=== PATIENT | male | born 2000 | race Caucasian/White ===

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

== ENCOUNTER 2022-01-06 17:54 | Emergency (ER) | payer SELFPAY ==
[2022-01-06 17:55] VITALS: BP 134/91; PULSE 102; RESP 15; TEMP 36.6; O2SAT 99; BMI 25.1
--- NOTE | 2022-01-06 18:04 | ED.RN ---
MARIE ON HER WAY IN.
--- NOTE | 2022-01-06 18:22 | RAD_ITS ---
STUDY: X-RAY - LEFT HAND REASON FOR EXAM: Male, 21 years old. Injury/Pain TECHNIQUE: 3 view(s) of the hand. COMPARISON: None. FINDINGS: Normal radiocarpal articulation. Normal distal radioulnar joint. Normal visualized carpal bones. Normal carpal articulations Normal carpometacarpal articulation of the thumb. Normal second through fifth carpometacarpal joints. Normal metacarpi. Normal metacarpophalangeal joint of the thumb. Normal interphalangeal joint of the thumb. Normal proximal and distal phalanges of the thumb. Normal metacarpophalangeal joints of the second through fifth fingers. Normal proximal and distal interphalangeal joints of the second through fifth fingers. Normal phalanges of the second through fifth fingers. The soft tissue structures are unremarkable. RAD/Hand Min 3 Views IMPRESSION: Normal x-ray examination of the hand. Electronically Signed: Lei Benítez MD at 18:45 EDT ,
--- NOTE | 2022-01-06 18:31 | ED.RN ---
PT STATES HE DOES NOT WANT TO FILE THIS UNDER WORKERS COMP. REGISTRATION AND DRUG SCREENER MADE AWARE.
--- NOTE | 2022-01-06 18:34 | EDS_ITS ---
HPI <TOO Hernandez - Last Filed: 01/06/22 18:49> History of Present Illness Chief Complaint: Upper Extremity Injury Narrative Narrative: Today at work patient states his left hand got crushed between 2 metal tables. He has pain and bruising over the dorsum of the hand. He is right-hand dominant. PFSH <TOO Hernandez Last Filed: 01/06/22 18:49> PFSH Medical History Contusion of thoracic wall Lumbar contusion Lumbar strain Thoracic myofascial strain Home Medications NK 01/11/21 [History Last Taken Unknown] Allergy/AdvReac Type Severity Reaction Status Date / Time No Known Allergies Allergy Verified 01/06/22 17:57 Social History Smoking Status: Never smoker ROS <TOO Hernandez - Last Filed: 01/06/22 18:49> ROS ED ROS Narrative Constitutional: Negative for fever, chills, malaise. Eyes: Negative for visual change. ENT: Negative for sore throat, rhinorrhea. CVS: Negative for palpitations, chest pain, syncope. Respiratory: Negative for shortness of breath, cough. GI: Negative for abdominal pain, nausea, vomiting. : Negative for dysuria, hematuria or frequency. Neuro: Negative for headache, motor/sensory dysfunction. Skin: Negative for rash, abscess, or wound. Musc: Positive for left hand pain, swelling, trauma. Heme: Negative for easy bruising, bleeding, lymphadenopathy. EXAM <TOO Hernandez Last Filed: 01/06/22 18:49> Physical Exam Narrative Exam Narrative: CONST: Patient sitting in no acute distress. EYES: Normal inspection. NECK: Normal inspection. RESP: No respiratory distress, CTAB. CVS: Regular rate and rhythm, no murmur, no gallop. SKIN: Color normal, no rash, warm, dry, intact. EXTREMITIES: Ecchymosis and tenderness over dorsal and palmar left second and third metatarsals, no deformity or crepitus, no tenderness of the wrist or MCPs or digits. Motor and sensation intact in median ulnar and radial distributions, 2+ radial pulse and brisk cap refill in all digits. NEURO: Oriented x4. PSYCH: Normal affect. Const Vital Signs: 01/06/22 17:55 Temperature 98 F Temperature Source Temporal Pulse Rate 102 H Respiratory Rate 15 Blood Pressure 134/91 H Blood Pressure Mean 105 Pulse Ox 99 Oxygen Delivery Method Room Air [facility] <TOO Hernandez - Last Filed: 01/06/22 18:49> [facility] Narrative Medical decision making narrative: Patient presents with left hand crush injury in between 2 tables. He is bruising and tenderness over the left second and third metacarpals on both the dorsal and palmar surfaces. He has full range of motion and is neurovascularly intact. ED attending interpretation of left hand x-ray shows no fracture or dislocation. We discussed treatment for his hand contusion with psgz-paj-xpbhlko analgesia ice and rest and he was discharged in stable condition. 1. Left hand contusion <Dr. Chidi Muller MD - Last Filed: 01/06/22 18:54> [facility] Narrative Medical decision making narrative: Patient presents with left hand crush injury in between 2 tables. He is bruising and tenderness over the left second and third metacarpals on both the dorsal and palmar surfaces. He has full range of motion and is neurovascularly intact. ED attending interpretation of left hand x-ray shows no fracture or dislocation. We discussed treatment for his hand contusion with over -the-counter analgesia ice and rest and he was discharged in stable condition. 1. Left hand contusion I have personally performed a face to face assessment of the patient and have reviewed the LEÓN Note. I performed a substantive portion of the visit including all aspects of the following. My noble findings include: History is [21-year-old male left hand injury and a piece of machinery. Does not want this to be Worker's Comp. He is right-hand dominant.] Exam is [healthy 21-year-old no acute distress. Vital signs stable afebrile. Exam normal except left hand mild bruising. Tenderness along the metacarpal of the long and ring finger. Normal flexion extension. Full range of motion. No bony deformity. Mild tenderness. Wrist and forearm nontender.] Medical Decision Making [left hand x-rays 3 views interpreted by ourselves shows no acute abnormality.] Other additions or changes: Left hand contusion. Ice and elevate. Motrin and Tylenol. Follow-up if not improving.] Discharge Plan Triage Chief Complaint: Upper Extremity Injury ED Midlevel Provider: Angela Chi ED Provider: Chidi Muller Dx/Rx/DC Orders Clinical Impression: Contusion of hand, left Instructions: ED Contusion, Upper Extremity Prescriptions: No Action NK Primary Care Provider: Dean Villa Referrals: Dean Villa MD [Primary Care Provider] - Activity Restrictions/Additional Instructions: Your x-ray showed no broken bones. Rest, ice, elevate your hand to decrease swelling and take Tylenol ibuprofen as needed. Disposition Disposition: Home, Self Care
== END 2022-01-06 19:01 | disposition home or self-care (01) ==
PROVIDERS: Emergency Provider Emergency Medicine; PCP Pediatrics; Visit Provider Emergency Medicine
DX: S60.222A Contusion of left hand, initial encounter (principal); W23.0XXA Caught, crushed, jammed, or pinched between moving objects, initial encounter; Y99.0 Civilian activity done for income or pay
CPT/HCPCS: 73130; 99282

== ENCOUNTER 2022-05-23 07:02 | Emergency (ER) | payer SELFPAY ==
[2022-05-23 07:02] VITALS: BP 134/90; PULSE 72; RESP 16; TEMP 36.3; O2SAT 99; BMI 21.2
--- NOTE | 2022-05-23 07:13 | EDS_ITS ---
HPI History of Present Illness Chief Complaint: Chest Pain Informant: patient Narrative Narrative: Patient presents with epigastric burning that has been going on for 45 minutes this morning. He has had mild versions of this before. He is not sure if he has a sour taste in his mouth. He has no nausea vomiting or diarrhea. He has not tried to eat anything this morning but he did drink some fluids without difficulty. He has no fevers or chills. No back pain. No prior surgeries. He did eat [employer] last night. He did enjoy the holidays. [facility] Medical History Contusion of thoracic wall Lumbar contusion Lumbar strain Thoracic myofascial strain Home Medications esomeprazole magnesium 20 mg capsule,delayed release (Nexium) 20 mg PO DAILY #20 caps 05/23/22 [Rx Last Taken Unknown] Allergy/AdvReac Type Severity Reaction Status Date / Time No Known Allergies Allergy Verified 01/06/22 17:57 Social History Smoking Status: Never smoker ROS ROS ED Constitutional Constitutional ED: Denies fever(s), subjective or sweats ENT ENT ED: Denies rhinorrhea or sore throat Cardiovascular Cardiovascular: Denies chest pain or palpitations Respiratory/Chest Respiratory/Chest: Denies cough or dyspnea Gastrointestinal Gastrointestinal: Reports abdominal pain; Denies constipation, diarrhea, melena, nausea or vomiting Genitourinary Genitourinary ED: Denies dysuria or hematuria Musculoskeletal Musculoskeletal: Denies back pain Integumentary Denies rash Neurologic Neurologic: Denies headache(s) Endocrine Endocrinology: Denies polydipsia or polyuria Hematologic/Lymphatic Hematologic/Lymphatic: Denies easy bleeding Allergic/Immunologic Allergic/Immunologic ED: Denies urticaria EXAM Physical Exam Const Vital Signs: 05/23/22 07:02 Temperature 97.3 F L Temperature Source Temporal Pulse Rate 72 Respiratory Rate 16 Blood Pressure 134/90 H Blood Pressure Mean 104 Pulse Ox 99 Oxygen Delivery Method Room Air Positive well nourished and well developed Constitutional Narrative: Patient searching through his phone sitting on the bed comfortably when I walk in the room. General Appearance ED: well developed and NAD HEENT Reports moist mucous membranes Eyes General Eye ED: Negative for pale conjunctiva or scleral icterus Resp normal respiratory effort and clear to auscultation bilaterally Cardio regular rate and regular rhythm GI normal to inspection, nondistended, normoactive bowel sounds, non-tender and non-distended GI Narrative: Abdomen is soft, nondistended, no scars or skin changes. There is no tenderness. There is no mass. There is no rebound or guarding. Bowel sounds are normal. This is a normal abdominal exam. Back/Spine no CVA tenderness Extremity normal to inspection Neuro Sensorium / Orientation: alert Psych mental status grossly normal Skin no rashes or lesions noted MDM MDM MDM Narrative Medical decision making narrative: Patient's rechecked after GI cocktail. He is feeling better. Repeat exam is still completely benign. We will get him home on a PPI. At this point he requested a work note. Discharge Plan Triage Chief Complaint: Chest Pain ED Provider: William Kim Dx/Rx/DC Orders Clinical Impression: Acute epigastric pain, Acute gastritis Instructions: ED Gastritis (Adult) Prescriptions: New esomeprazole magnesium [Nexium] 20 mg capsule,delayed release(DR/EC) 20 mg PO DAILY Qty: 20 0RF Stand Alone Forms: Work / School Excuse Primary Care Provider: Dean Villa Referrals: Dean Villa MD [Primary Care Provider] - 3-5 Days if not improving Disposition Disposition: Home, Self Care
[2022-05-23] MEDS: Mag Hydrox/Al Hydrox/Simeth 30 ML UDC PO (07:24)
== END 2022-05-23 08:01 | disposition home or self-care (01) ==
LOC: ED 07:50
PROVIDERS: Emergency Provider Emergency Medicine; PCP Pediatrics; Visit Provider Emergency Medicine
DX: R10.13 Epigastric pain (principal); K29.00 Acute gastritis without bleeding
CPT/HCPCS: 99283

== ENCOUNTER 2022-05-31 07:05 | Emergency (ER) | payer SELFPAY ==
[2022-05-31 07:06] VITALS: BP 124/77; PULSE 78; RESP 16; TEMP 36.1; O2SAT 100; BMI 22.1
--- NOTE | 2022-05-31 07:16 | EDS_ITS ---
HPI History of Present Illness Chief Complaint: Cold Sx Narrative Narrative: 21-year-old male presents with URI type symptoms and diarrhea. He states I do not know if I have COVID or the flu or something, but he states he does not feel well. His diarrhea/watery stool began a few days ago. No blood in his stool. His body aches may have started yesterday for which he took ibuprofen but he states today he has multiple myalgias and body aches. He has an occasional cough, but he vapes and states he always has a cough. He presents because he wants to know if he has COVID or influenza. [facility] Medical History Contusion of thoracic wall Lumbar contusion Lumbar strain Thoracic myofascial strain Home Medications esomeprazole magnesium 20 mg capsule,delayed release (Nexium) 20 mg PO DAILY #20 caps 05/23/22 [Rx Last Taken Unknown] Allergy/AdvReac Type Severity Reaction Status Date / Time No Known Allergies Allergy Verified 05/31/22 07:05 Social History Smoking Status: Never smoker ROS ROS ED ROS Narrative Constitutional: No fever, no chills. HEENT: No sore throat. No neck pain. No loss of vision. Occasional nasal congestion/rhinorrhea. Cardiovascular: No chest pain. No palpitations. No pedal edema. Respiratory: No cough, no shortness of breath. Abdominal: No abdominal pain. No nausea. No vomiting. Positive diarrhea beginning a few days ago. Described as watery stool, nonbloody. Genitourinary: No dysuria. No hematuria. Musculoskeletal: Multiple myalgias. No arthralgias. Neurologic: No headaches. No dizziness. No lightheadedness. Skin: No rash. No change in color. Psychiatric: No depression. No anxiety. EXAM Physical Exam Narrative Exam Narrative: Afebrile. Vital signs noted. Nontoxic-appearing. HEENT: Normocephalic. Atraumatic. PERRL, EOMI. Neck soft and supple. No point tenderness or step off. Cardiovascular: Regular rate and rhythm. No murmurs, rubs, or gallops appreciated. Respiratory: No tachypnea. Lungs clear to auscultation bilaterally. Gastrointestinal: Abdomen soft, nontender, with normoactive bowel sounds. No rebound or guarding. Neurological: Awake. Alert. Nonfocal, nonlateralizing. Skin: No rash. Normal color. No pallor. Musculoskeletal: No pedal edema. Full range of motion extremities. Const Vital Signs: 05/31/22 07:06 05/31/22 07:28 Temperature 97.0 F L Temperature Source Temporal Pulse Rate 78 Respiratory Rate 16 Respiratory Effort Normal Non-Labored Respiratory Pattern Normal Blood Pressure 124/77 H Blood Pressure Mean 92 Pulse Ox 100 Oxygen Delivery Method Room Air MDM MDM MDM Narrative Medical decision making narrative: Smoking cessation discussed. COVID and influenza swab obtained. Treatment be symptomatic. His pulse ox is 100% on room air. He has a normal pulse of 78. I do not feel he requires IV fluids, I do not feel that any other laboratory work/blood work is indicated. COVID and influenza swabs are negative. At this point in time, I feel he can be discharged safely home with symptomatic treatment with [id number] medications. He will follow-up with his primary care provider. Return instructions to the emergency department were reviewed. He was given a note to be off work today. Disposition is discharged home in stable condition. Discharge Plan Triage Chief Complaint: Cold Sx ED Provider: Vernon Amaral Dx/Rx/DC Orders Clinical Impression: URI (upper respiratory infection), Diarrhea Instructions: ED Diarrhea, Unknown Cause, ED URI, Viral, No Abx (Adult) Prescriptions: No Action esomeprazole magnesium [Nexium] 20 mg capsule,delayed release(DR/EC) 20 mg PO DAILY Qty: 20 0RF Stand Alone Forms: ED Work / School Excuse Primary Care Provider: Dean Villa Referrals: Dean Villa MD [Primary Care Provider] - 3-5 Days if not improving Disposition Disposition: Home, Self Care
[2022-05-31 08:21] VITALS: BP 131/67; PULSE 82; RESP 15; O2SAT 98
== END 2022-05-31 08:21 | disposition home or self-care (01) ==
LOC: ED 07:43
PROVIDERS: Emergency Provider Emergency Medicine; PCP Pediatrics; Visit Provider Emergency Medicine
DX: J06.9 Acute upper respiratory infection, unspecified (principal); R19.7 Diarrhea, unspecified; Z20.822 Contact with and (suspected) exposure to COVID-19
CPT/HCPCS: 87428; 99282

== ENCOUNTER 2022-12-17 18:44 | Emergency (ER) | payer BC, SELFPAY ==
[2022-12-17 18:44] VITALS: BP 141/90; PULSE 99; RESP 18; TEMP 35.2; O2SAT 99; BMI 24.5
--- NOTE | 2022-12-17 18:52 | EDS_ITS ---
HPI <TOO Hernandez - Last Filed: 12/17/22 19:41> History of Present Illness Chief Complaint: Lower Extremity Injury Narrative Narrative: 22-year-old male thinks he might of strained his right thigh. 2 days ago he was chasing his dog and then he noticed he was having pain in the inner thigh. 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 He tried Aleve with no relief. He denies back pain or radi cular pain. No weakness numbness or tingling. There was no fall or direct trauma. PFSH <TOO Hernandez - Last Filed: 12/17/22 19:41> [facility] Medical History Contusion of thoracic wall Lumbar contusion Lumbar strain Thoracic myofascial strain Home Medications esomeprazole magnesium 20 mg capsule,delayed release (Nexium) 20 mg PO DAILY #20 caps 05/23/22 [Rx Last Taken Unknown] Allergy/AdvReac Type Severity Reaction Status Date / Time No Known Allergies Allergy Verified 05/31/22 07:05 Social History Smoking Status: Never smoker ROS <TOO Hernandez - Last Filed: 12/17/22 19:41> ROS ED ROS Narrative Constitutional: Negative for fever, chills, malaise. GI: Negative for abdominal pain, nausea, vomiting. : Negative for dysuria. Neuro: Negative for motor/sensory dysfunction. Skin: Negative for rash, wound. Musc: Negative for joint pain, swelling, trauma. EXAM <TOO Hernandez - Last Filed: 12/17/22 19:41> Physical Exam Narrative Exam Narrative: CONST: Patient sitting in no acute distress. EYES: Normal inspection. NECK: Normal inspection. RESP: No respiratory distress, CTAB. CVS: Regular rate and rhythm, no murmur, no gallop. Back: Normal inspection, no midline or paraspinal tenderness. No step-offs or crepitus. SKIN: Color normal, no rash, warm, dry, intact. EXTREMITIES: Normal appearance, full ROM of lower extremities with no bony tenderness, tender over right medial thigh muscles. Compartments are soft. Normal strength and sensation, 2+ PT pulses. NEURO: Oriented x4. PSYCH: Normal affect. Const Vital Signs: 12/17/22 18:44 Temperature 95.3 F L Temperature Source Temporal Pulse Rate 99 Respiratory Rate 18 Blood Pressure 141/90 H Blood Pressure Mean 107 Pulse Ox 99 Oxygen Delivery Method Room Air <Dr. Rudi Lund MD - Last Filed: 12/17/22 19:38> Physical Exam Const Vital Signs: 12/17/22 18:44 Temperature 95.3 F L Temperature Source Temporal Pulse Rate 99 Respiratory Rate 18 Blood Pressure 141/90 H Blood Pressure Mean 107 Pulse Ox 99 Oxygen Delivery Method Room Air MDM <TOO Hernandez - Last Filed: 12/17/22 19:41> [facility] Narrative Medical decision making narrative: Patient has right medial thigh pain with no clear injury. He is tender over the muscles in this area but there is no bony tenderness. He has full range of motion and is neurovascularly intact. No tenderness of his back and he is not describing any back pain or radicular symptoms. I suspect this is a groin strain and he was given Toradol with improvement. A work note was provided and I recommended OTC pain relievers. He was discharged in stable condition. Test considered: No indication for x-rays as he has no bony tenderness and no trauma <Dr. Rudi Lund MD - Last Filed: 12/17/22 19:38> [facility] Treatment and Re-Evaluation Comments:: Seen and evaluated independently and in conjunction with physician physical laboratory assistant. Agree with notes above unless documented otherwise. Patient was chasing his dog and he states while he was walking back he stumbled without falling down, and that is when he noticed his right groin starting to hurt. Still able to walk but hurts to do certain motions. Exam: Able to stand. Painless with resting logroll, but tender at the origin tendon of the hip flexors in the anterior compartment as well as the medial compartment proximally in the right thigh. No tenderness at the greater trochanter or the ASIS, or elsewhere with regards to the bony lower extremity or pelvis. Reassured treated supportively with NSAIDs. Patient is asking for a work note for 5 days because he is a stand-up shuttle van driver, he is having trouble doing his job the last 2 days, and for safety reasons they are requesting him to take a leave of absence for 5 days which I am fine with. Discharge Plan Triage Chief Complaint: Lower Extremity Injury ED Midlevel Provider: Angela Chi ED Provider: Rudi Lund Dx/Rx/DC Orders Clinical Impression: Strain of muscle of right groin region Instructions: Treating?Strains and Sprains Prescriptions: No Action esomeprazole magnesium [Nexium] 20 mg capsule,delayed release(DR/EC) 20 mg PO DAILY Qty: 20 0RF Stand Alone Forms: ED Work / School Excuse Primary Care Provider: Dean Villa Referrals: Dean Villa MD [Primary Care Provider] - Activity Restrictions/Additional Instructions: I recommend taking Tylenol and Motrin and using ice as needed. Disposition Disposition: Home, Self Care
[2022-12-17] MEDS: Ketorolac 15 MG/ML Vial IM (18:59)
== END 2022-12-17 20:03 | disposition home or self-care (01) ==
PROVIDERS: Emergency Provider Emergency Medicine; PCP Pediatrics; Visit Provider Emergency Medicine
DX: S76.911A Strain of unspecified muscles, fascia and tendons at thigh level, right thigh, initial encounter (principal); X58.XXXA Exposure to other specified factors, initial encounter
CPT/HCPCS: 96372; 99282

== ENCOUNTER 2023-05-15 17:02 | Emergency (ER) | payer BC, SELFPAY ==
[2023-05-15 17:02] VITALS: BP 130/87; PULSE 91; RESP 16; TEMP 36.2; O2SAT 100; BMI 24.7
--- NOTE | 2023-05-15 19:20 | ED.VIS.BACK ---
HPI History of Present Illness Chief Complaint: Back Informant: patient Narrative Narrative: 22-year-old male states that he was stretching this morning and had pain in the mid scapular region bilaterally. Now he states it is painful whenever he moves his head back. He denies any dyspnea or difficulty breathing. No radicular symptoms. No recent fevers or illnesses. [facility] Medical History Contusion of thoracic wall Lumbar contusion Lumbar strain Thoracic myofascial strain Home Medications esomeprazole magnesium 20 mg capsule,delayed release (Nexium) 20 mg PO DAILY #20 caps 05/23/22 [Rx Last Taken Unknown] Allergy/AdvReac Type Severity Reaction Status Date / Time No Known Allergies Allergy Verified 05/15/23 17:04 Social History Smoking Status: Never smoker ROS ROS ED Constitutional Constitutional ED: Denies chills or weight loss Eyes Eyes: Denies change in vision or diplopia ENT ENT ED: Denies ear pain, rhinorrhea or sore throat Cardiovascular Cardiovascular: Denies chest pain, orthopnea, palpitations or racing heartbeat Respiratory/Chest Respiratory/Chest: Denies cough, dyspnea or orthopnea Gastrointestinal Gastrointestinal: Denies abdominal pain, diarrhea, nausea or vomiting Genitourinary Genitourinary ED: Denies dysuria, hematuria or urinary frequency Musculoskeletal Musculoskeletal: Reports back pain; Denies arthralgias, myalgias or neck pain Integumentary Denies abscess or rash Neurologic Neurologic: Denies headache(s) or weakness Psychiatric Psychiatric: Denies anxiety, depression, suicidal ideation or suicidal thoughts Endocrine Endocrinology: Denies polydipsia, polyphagia or polyuria Allergic/Immunologic Allergic/Immunologic ED: Denies mouth swelling, tongue swelling or urticaria EXAM Physical Exam Const Vital Signs: 05/15/23 17:02 Temperature 97.2 F L Temperature Source Temporal Pulse Rate 91 Respiratory Rate 16 Blood Pressure 130/87 H Blood Pressure Mean 101 Pulse Ox 100 Oxygen Delivery Method Room Air Positive well nourished and well developed General Appearance ED: well developed HEENT Reports normocephalic, head/scalp atraumatic and moist mucous membranes Eyes PERRL and EOMs intact bilaterally Neck no lymphadenopathy, supple and no JVD Resp normal respiratory effort and clear to auscultation bilaterally Cardio regular rate, regular rhythm and no murmurs GI normal to inspection, nondistended, normoactive bowel sounds and non-tender Palpation: soft Back/Spine no CVA tenderness Back/Spine Narrative: Patient has tenderness to palpation bilateral paraspinal musculature right greater than left of the mid thoracic region. Appears to be some tissue texture changes consistent with myofascial dysfunction. Tender spinous processes without swelling or evidence to suggest underlying infection. Extremity normal to inspection General Extremety ED: Negative for edema General Extremity: Negative for edema Neuro oriented x3 and CN's II-XII intact bilaterally Sensorium / Orientation: alert Motor Exam: strength 5/5 throughout Psych mental status grossly normal Mood & Affect: Negative for depressed or tearful Skin no rashes or lesions noted and no wounds MDM MDM MDM Narrative Medical decision making narrative: I believe the patient has somatic dysfunction involving the thoracic myofascia. Would recommend heat anti-inflammatories gentle stretching and muscle shortening techniques which were discussed with the patient. Discharge Plan Triage Chief Complaint: Back ED Provider: Jeremy Maciel Dx/Rx/DC Orders Clinical Impression: Acute back pain, Thoracic myofascial strain Instructions: ED Back Sprain/Strain Prescriptions: No Action esomeprazole magnesium [Nexium] 20 mg capsule,delayed release(DR/EC) 20 mg PO DAILY Qty: 20 0RF Primary Care Provider: Dean Villa Referrals: Dean Villa MD [Primary Care Provider] - Activity Restrictions/Additional Instructions: I would recommend Motrin 600 mg every 6 hours. It is not reasonable to assume that 1 dose will make you pain-free. This is an anti-inflammatory and needs to be dosed regularly over a course to be effective. I would recommend heat gentle stretching and Towel muscle relaxation as discussed Disposition Disposition: Home, Self Care Discharge Date/Time: 05/15/23 19:24
== END 2023-05-15 19:26 | disposition home or self-care (01) ==
LOC: ED 19:21
PROVIDERS: Emergency Provider Emergency Medicine; PCP Pediatrics; Visit Provider Emergency Medicine
DX: S29.019A Strain of muscle and tendon of unspecified wall of thorax, initial encounter (principal); M54.9 Dorsalgia, unspecified; X58.XXXA Exposure to other specified factors, initial encounter
CPT/HCPCS: 99282